=== PATIENT | male | born 1970 | race Caucasian/White ===

== ENCOUNTER 2018-07-10 09:27 | Day surgery (SDC) | payer BC, OTHER ==
[2018-07-10] MEDS ORDERED: LIDOCAINE HCL 1% MPF 30 SOL ONE (10:09)
[2018-07-10] MEDS ORDERED: PROPOFOL 500 MG/50 ML EMU IV ONE (10:09)
[2018-07-10 11:31] VITALS: BP 119/79; PULSE 60; RESP 16; TEMP 97.7; O2SAT 96
== END 2018-07-10 11:49 | disposition home or self-care (01) ==
LOC: SURG 09:27
PROVIDERS: ATTEND Surgery
DX: Z12.11 Encounter for screening for malignant neoplasm of colon (principal); K57.32 Diverticulitis of large intestine without perforation or abscess without bleeding; D12.8 Benign neoplasm of rectum
CPT/HCPCS: 99001; J2001; J2704